=== PATIENT | female | born 1960 | race Caucasian/White ===

== ENCOUNTER 2019-03-27 10:16 | Emergency (ER) | payer BC ==
--- NOTE | 2019-03-27 11:56 | ED ---
Lower Extremity - HPI Summary HPI Summary: Patient is a 58-year-old female who presents emergency department for a left ankle injury that occurred yesterday. Patient states she was riding her horse alongside a friend when her left ankle got caught on her friends leg. Patient states her ankle twisted backwards but she did not fall off her horse. Patient notes pain persisted today and she presents for evaluation. Symptoms are mild in severity. Walking makes symptoms worse. Rest makes symptoms better. No other injuries were sustained. - History of Current Complaint Chief Complaint: EDExtremityLower Stated Complaint: INJURY TO LEFT ANKLE PER PT Time Seen by Provider: 03/27/19 11:00 Hx Obtained From: Patient Pain Intensity: 7 - Allergies/Home Medications Allergies/Adverse Reactions: Allergies Allergy/AdvReac Type Severity Reaction Status Date / Time erythromycin base Allergy GI Upset Verified 03/27/19 10:20 Home Medications: Home Medications Fexofenadine (NF) [Josefina (NF)] 60 mg PO DAILY 03/27/19 [History Confirmed 08/10] PMH/Surg Hx/FS Hx/Imm Hx Previously Healthy: Yes Infectious Disease History: No Infectious Disease History: Denies: Traveled Outside the [place] in Last 30 Days - Social History Occupation: Employed Full-time, Retired Lives: With Family Alcohol Use: None Substance Use Type: Reports: None Smoking Status (MU): Light Every Day Tobacco Smoker Review of Systems Positive: Other - Left ankle pain Positive: Bruising Neurological: Negative Negative: Weakness, Paresthesia, Numbness All Other Systems Reviewed And Are Negative: Yes Physical Exam Triage Information Reviewed: Yes Vital Signs On Initial Exam: Initial Vitals Temp Pulse Resp BP Pulse Ox 99.0 F 90 14 146/86 98 03/27/19 10:18 03/27/19 10:18 03/27/19 10:18 03/27/19 10:18 03/27/19 10:18 Vital Signs Reviewed: Yes Appearance: Positive: Well-Appearing - Pt. lying on bed in NAD> present. Skin: Positive: Warm, Dry Head/Face: Positive: Normal Head/Face Inspection Eyes: Positive: Normal, EOMI Neck: Positive: Supple Musculoskeletal: Positive: Other - Mild edema and ecchymosis noted to left lateral malleolus. No breaks in the skin. Good pedal pulse. Achilles tendon is intact. No proximal knee or tib-fib pain. Neurological: Positive: Normal, CN Intact II-III Psychiatric: Positive: Affect/Mood Appropriate Procedures - Sedation Patient Received Moderate/Deep Sedation with Procedure: No - Splinting Left Lower Extremity Hand-Made Type: orthoglass Splint: posterior walking Pre-Proc Neuro Vasc Exam: normal Post-Proc Neuro Vasc Exam: normal Splint Applied by Provider: Miguelito Chang Diagnostics - Vital Signs Vital Signs Temp Pulse Resp BP Pulse Ox 03/27/19 10:18 99.0 F 90 14 146/86 98 - Laboratory Lab Statement: Any lab studies that have been ordered have been reviewed, and results considered in the medical decision making process. Lower Extremity Course/Dx - Course Course Of Treatment: Patient with isolated left ankle injury. Patient declines pain medication in the ED. X-ray shows nondisplaced distal fibular fracture, reading per radiology. Patient was splinted and crutched. Patient would like to continue Tylenol or Motrin for pain as directed. To call orthopedics tomorrow for close follow up appointment. Ice and elevate. Nonweightbearing. Patient understands and agrees with plan. - Diagnoses Differential Diagnosis/HQI/PQRI: Positive: Contusion, Dislocation, Fracture ( Closed), Sprain, Strain Provider Diagnoses: Ankle fracture Discharge ED - Sign-Out/Discharge Documenting (check all that apply): Patient Departure - Discharge Plan Condition: Good Disposition: HOME Patient Education Materials: Ankle Fracture (ED) Referrals: Amor Storm MD [Medical Doctor] - Cameron BLUM,Marj Brown [Primary Care Provider] - Additional Instructions: Call orthopedic clinic tomorrow for a close follow up appointment Keep splint in place and use crutches Elevate and ice intermittently Tylenol or motrin for pain as directed Return to ER if symptoms change or worsen - Billing Disposition and Condition Condition: GOOD Disposition: Home
[2019-03-27 12:00] VITALS: BP 136/81
== END 2019-03-27 11:54 | disposition home or self-care (01) ==
LOC: ED 10:16
DX: S82.892A Other fracture of left lower leg, initial encounter for closed fracture (principal); W23.0XXA Caught, crushed, jammed, or pinched between moving objects, initial encounter; Y93.52 Activity, horseback riding; Y92.9 Unspecified place or not applicable; F17.200 Nicotine dependence, unspecified, uncomplicated; Z79.899 Other long term (current) drug therapy; Z88.1 Allergy status to other antibiotic agents
CPT/HCPCS: 99282